=== PATIENT | female | born 1960 | race Caucasian/White ===

== ENCOUNTER 2017-02-02 23:39 | Emergency (ER) | payer SELFPAY ==
[~2017-02-02] VITALS: Ht 162.6 cm; Wt 90.9 kg
[2017-02-02 23:44] VITALS: TEMP 97.8
[2017-02-02] MEDS ORDERED: INDERAL80 MG PO (23:49)
[2017-02-02] MEDS ORDERED: FIORICET 325 MG1 TA1 PO (23:50)
[2017-02-02] MEDS ORDERED: ZYLOPRIM 300MG300 MG PO (23:50)
[2017-02-03 02:41] VITALS: BP 171/101; PULSE 80
== END 2017-02-03 02:40 | disposition home or self-care (01) ==
LOC: COL.ER 23:39
DX: G43.909 Migraine, unspecified, not intractable, without status migrainosus (principal); I10 Essential (primary) hypertension
CPT/HCPCS: J1170; J2300; J2550